=== PATIENT | male | born 2000 | race Two or more races ===

== ENCOUNTER 2025-08-24 17:31 | Emergency (ER) | payer MEDICAID, SELFPAY ==
[2025-08-24 18:06] VITALS: BP 131/79; PULSE 58; RESP 16; TEMP 36.3; O2SAT 98; BMI 29.9
--- NOTE | 2025-08-24 18:26 | XR_ITS ---
Examination: CT abdomen and pelvis without contrast. Coronal 3-D reconstructions. Sagittal 2-D reconstructions. Date and time of exam: August 24, 2025, 1835 hours INDICATIONS: Bilateral flank pain beginning 5 days ago CTDI: vol (mGy): 8.3 DLP: (mGycm): 476 Technique: Axial images of the abdomen have been obtained, 3 mm slice thickness Intravenous contrast material has not been administered. Low dose protocols were performed. One or more of the following dose reduction techniques were used; automated exposure control, adjustment of the mA and/or KV according to patient size, use of iterative reconstruction technique. Findings: 3 mm pulmonary nodule left lower lobe No focal liver or splenic lesion No gallstones No pancreatic or adrenal mass No hydronephrosis but 6 mm proximal right ureteral calculus, coronal image 73 Aorta normal size 10 mm fat-containing umbilical hernia Normal appendix No bowel obstruction Normal prostate Normal urinary bladder Intact osseous structures IMPRESSION: 3 mm pulmonary nodule left lower lobe, recommend PA chest follow-up No hydronephrosis but 6 mm proximal right ureteral calculus, coronal image 73
--- NOTE | 2025-08-24 18:26 | PD.EDRME ---
Rapid Medical Screening Exam E Arrival date/time: 08/24/25 17:31 24M with history of kidney stones presents to ED with several days of bilateral flank pain (R>L). Patient denies gross dysuria/hematuria. Patient works as a data processing consultant. Chief Complaint: Back Pain/Injury Vital signs: Vital Signs Temperature 97.4 F 08/24/25 18:06 Pulse Rate 58 L 08/24/25 18:06 Respiratory Rate 16 08/24/25 18:06 Blood Pressure 131/79 H 08/24/25 18:06 Pulse Oximetry (%) 98 08/24/25 18:06 Oxygen Delivery Method Room Air 08/24/25 18:06 Exam: No gross CVA tenderness. Clinical Impression: MSK back pain vs UTI/pyelo vs kidney stone vs DDD
[2025-08-24 18:59] LABS: Collection Type, Urine Clean Catch; Squamous Epithelial Cell,Urine 0 /hpf (0-5)
[2025-08-24 18:59] LABS: Basophils # (Auto) 0.0 Thou/mm3 (0.0-0.2); Basophils % (Auto) 0 % (0-2.5); Eosinophils # (Auto) 0.0 Thou/mm3 (0.0-0.5); Eosinophils % (Auto) 0 % (0-10); Hematocrit 45.5 % (41.0-53.0); Hemoglobin 16.5 g/dL (13.5-16.0); Immature Granulocytes Auto 0.07 Thou/mm3 (0.00-0.00); Lymphocytes # (Auto) 2.5 Thou/mm3 (1.0-4.8); Lymphocytes % (Auto) 15 % (10-50); Mean Corpuscular HGB Conc 36.3 g/dl (31.0-37.0); Mean Corpuscular Hemoglobin 30.3 pg (25.0-35.0); Mean Corpuscular Volume 84 fL (80-100); Monocytes # (Auto) 0.8 Thou/mm3 (0.0-0.8); Monocytes % (Auto) 5 % (0-12); Neutrophils # (Auto) 12.7 Thou/mm3 (1.8-7.7); Neutrophils % (Auto) 79 % (37-80); Nucleated Red Blood Cell # 0.00 Thou/mm3 (0.00-0.00); Nucleated Red Blood Cell % 0 /100 WBC (0); Platelet Count 331 Thou/mm3 (140-440); RDW Standard Deviation 36.5 fL (35.1-43.9); Red Blood Count 5.45 Miln/mm3 (4.50-5.90); White Blood Count 16.1 Thou/mm3 (3.8-10.6)
[2025-08-24 19:12] LABS: Bilirubin,Urine Negative (Negative); Blood,Urine 3+ (Negative); Clarity,Urine Clear (Clear/Hazy); Color,Urine Lt-Yellow (Lt Yel-Yel); Culture Indicated,Urine Not Indicated; Glucose, Urine Negative (Negative); Ketones,Urine Negative (Negative); Leukocyte Esterase,Urine Negative (Negative); Nitrite,Urine Negative (Negative); PH,Urine 8.0 (5.0-7.0); Protein,Urine Negative (Neg - Trace); RBC,Urine 368 /hpf (0-3); Specific Gravity,Urine 1.019 (1.001-1.035); Urobilinogen,Urine Negative mg/dL (0.0-1.0); WBC,Urine 1 /hpf (0-5)
[2025-08-24 19:19] LABS: Amphetamine/Methamp Scrn,U Negative (Negative); Barbiturate Screen,Urine Negative (Negative); Benzodiazepines Screen,Urine Negative (Negative); Benzoylecgonine Screen, Ur Negative (Negative); Fentanyl Screen,Urine Negative (Negative); Opiate Screen,Urine Negative (Negative); THC Screen,Urine Positive (Negative)
[2025-08-24 19:20] LABS: Alanine Aminotransferase 18 U/L (10-49); Albumin, Serum 5.2 gm/dL (3.5-5.0); Albumin/Globulin Ratio 1.4 (1.2-2.2); Alkaline Phosphatase 92 U/L (46-116); Anion Gap 9 (7-16); Aspartate Amino Transferase 25 U/L (0-34); BUN/Creatinine Ratio 7 Ratio (12-20); Bilirubin,Total 0.7 mg/dL (0.3-1.2); Blood Urea Nitrogen 7 mg/dL (9-23); Calcium 10.5 mg/dL (8.3-10.6); Calcium (Corrected) 10.5 mg/dL (8.5-10.1); Carbon Dioxide 27.4 mMol/L (20.0-31.0); Chloride 103 mMol/L (98-107); Creatinine (Component) 1.0 mg/dL (0.6-1.3); Estimated Creatinine Clearance 117.0 mL/min (>60); Globulin 3.6 gm/dL (2.3-3.5); Glucose 119 mg/dL (74-106); Osmolality,Calculated 276 (275-295); Potassium 4.7 mMol/L (3.4-5.1); Sodium 139 mMol/L (136-145); Total Protein 8.8 gm/dL (5.7-8.2); eGFR > 60 See Note
--- NOTE | 2025-08-24 20:36 | PD.EDBACK ---
ED Back Injury Pain RME/HPI General Chief Complaint: Back Pain/Injury Stated Complaint: DELMIS FLANK PAIN, 03/17 Time Seen by Provider: 08/24/25 19:27 Arrival date/time: 08/24/25 17:31 24-year-old male patient with no past medical history, came in for evaluation regarding right flank pain. This been ongoing for several days, getting worse today, sometimes also complaining of left flank pain. Currently pain is described as crampy, severity 7 out of 10. Denies any fever no vomiting no other complaints noted denies any hematuria or dysuria or frequency. No medication was taken prior to ER visit. RME / HPI RME / HPI Narrative: 08/24/25 17:31 24M with history of kidney stones presents to ED with several days of bilateral flank pain (R>L). Patient denies gross dysuria/hematuria. Patient works as a real estate rep. Exam: No gross CVA tenderness. Impression: MSK back pain vs UTI/pyelo vs kidney stone vs DDD Related Data Previous Rx's ?Medication ?Instructions ?Recorded ketorolac 10 mg tablet 10 mg PO TID PRN pain 5 days #20 08/24/25 tabs tamsulosin 0.4 mg capsule 0.4 mg PO QDAY #14 caps 08/24/25 Allergies Allergy/AdvReac Type Severity Reaction Status Date / Time No Known Allergies Allergy Verified 08/24/25 17:35 Review of Systems Review of Systems Narrative Review of Systems: Review of system reviewed and within normal limits except mentioned in HPI ED Exam Narrative Physical exam: VITAL SIGNS: Reviewed. GENERAL APPEARANCE: Alert and interactive, follows commands, no acute distress, HEAD AND FACE: Non-traumatic. ENT: PERRL, pink conjunctivitis, eyelid no trauma, Mucous membrane moist. NECK: Supple, nontender, no nuchal rigidity. CHEST: No tenderness, no crepitus, no paradoxical movement, no retractions. LUNGS: Clear, well ventilated, symmetric, no rales, no wheezing, no ronchi, no stridor, good breath sounds bilaterally. HEART: Regular rate, regular rhythm, no murmur, no gallops. ABDOMEN: Soft, positive bowel sounds, nondistended, no guarding, nontender, no rebound, no masses, right flank tenderness RECTAL: Deferred. GENITAL: Deferred. NEUROLOGICAL: Gross motor function intact sensory function intact, Appropriate for age. MUSCULOSKELETAL: low back nontender, full range of motion. EXTREMITIES: Nontender, full range of motion. SKIN: Color pink, dry, no rash, no lacerations, no abrasions, no contusions. LYMPHATICS: Deferred. Course Quality Measures none Orders Category Date Time Status CT abdomen pelvis wo con Stat Exams 08/24/25 18:26 Completed CBC Stat Lab 08/24/25 18:41 Completed CMP [Comprehensive Metabolic Panel] Stat Lab 08/24/25 18:41 Completed Drug Screen,Urine Stat Lab 08/24/25 18:45 Completed Urinalysis, C/S if Indicated Stat Lab 08/24/25 18:45 Completed Ketorolac Inj [Toradol Inj] Med 08/24/25 20:35 Discontinued 30 mg IVP X1 ONE Ringers Lactated 1000 ml [Lactated Ringers] 1,000 ml Med 08/24/25 20:35 Discontinued IV 999 mls/hr Ringers Lactated 1000 ml [Lactated Ringers] 1,000 ml Med 08/24/25 20:36 Discontinued IV 999 mls/hr Tamsulosin HCl [Flomax] Med 08/24/25 20:35 Discontinued 0.4 mg PO X1 ONE Vital Signs Vital signs: Vital Signs Temperature 97.4 F 08/24/25 18:06 Pulse Rate 58 L 08/24/25 18:06 Respiratory Rate 16 08/24/25 18:06 Blood Pressure 131/79 H 08/24/25 18:06 Pulse Oximetry (%) 98 08/24/25 18:06 Oxygen Delivery Method Room Air 08/24/25 18:06 Back Pain / Injury MDM Narrative MDM Narrative:: 08/24/25 17:31 24-year-old male patient with no past medical history, came in for evaluation regarding right flank pain. This been ongoing for several days, getting worse today, sometimes also complaining of left flank pain. Currently pain is described as crampy, severity 7 out of 10. Denies any fever no vomiting no other complaints noted denies any hematuria or dysuria or frequency. No medication was taken prior to ER visit. Patient's workup came back unremarkable except positive for hematuria no UTI. CT scan of the abdomen pelvis showed no hydronephrosis process however patient had 6 mm right ureteral stone. Patient received 2 L of IV fluids, Toradol, and Flomax. Patient verbalized complete resolution of pain. No vomiting no fever urinating a lot while in the emergency room. Patient data External records reviewed:: None Clinical information provided by:: patient and family Social determinants that could affect healthcare access:: none (none) Patient has the following chronic illnesses:: none How is presenting disease/condition affected by chronic disease/condition?: exacerbated by Evaluation data The following diagnostics were reviewed and interpreted by me:: lab results and radiology exam(s) Lab and/or radiology exams considered but not ordered:: none Interpretation Summary: see above Medications / Prescriptions Medications or Prescriptions considered but not ordered:: none Medication administrations:: Medication Administration History Discontinued Medications Lactated Ringer's (Lactated Ringers) 1,000 mls @ 999 mls/hr IV .Q1H1M ONE Stop: 08/24/25 21:35 Last Infusion: 08/24/25 22:08 Dose: Infused Documented By: Admin: 08/24/25 20:46 Dose: 999 mls/hr Documented By: EUNICE Lactated Ringer's (Lactated Ringers) 1,000 mls @ 999 mls/hr IV .Q1H1M ONE Stop: 08/24/25 21:36 Last Infusion: 08/24/25 22:09 Dose: Infused Documented By: Admin: 08/24/25 20:47 Dose: 999 mls/hr Documented By: EUNICE Ketorolac Tromethamine (Ketorolac Inj 30 Mg/Ml Vial) 30 mg IVP X1 ONE Stop: 08/24/25 20:36 Last Admin: 08/24/25 20:46 Dose: 30 mg Documented By: EUNICE Tamsulosin HCl (Tamsulosin Hcl 0.4 Mg Capsule) 0.4 mg PO X1 ONE Stop: 08/24/25 20:36 Last Admin: 08/24/25 21:21 Dose: 0.4 mg Documented By: RADHA IV fluids, Toradol Flomax Consultations Consultation(s) initiated? (list below): No Diagnosis Differential diagnosis back pain/injury: sciatica, renal colic and pyelonephritis Most likely diagnosis given after review of the tests above:: Ureterolithiasis Admission Indicated Admission indicated?: not indicated Admission Request Was there a request for admission?: No Disposition Plan Disposition Plan: Discharge Discharge Attestation Discharge Attestation: The patient and all family members were given an opportunity to ask questions and understood the discharge instructions. Discharge instructions specifically effects, indications for sooner follow up or return to the emergency department, and the expected course of current diagnosis. Patient condition: Stable Discharge Plan Plan Patient Disposition: HOME (Self Care) Discharge Disposition comment: Stable Prescriptions/Referrals Prescriptions/Med Rec: New ketorolac 10 mg tablet 10 mg PO TID PRN (Reason: pain) 5 Days Qty: 20 0RF tamsulosin 0.4 mg capsule 0.4 mg PO QDAY Qty: 14 0RF Referrals: No Primary/Family,Physician [Primary Care Provider] - In 1 week Problem List Clinical Impression: Ureterolithiasis Patient/Caregiver Discharge Instructions Discharge Activity: activity as tolerated Education Materials: Kidney Stones Expectant Tx Additional Instructions: Thank you for the opportunity for serving you today. You are stable for discharged . You are advised to: Follow-up with your PCP in 1 to 2 days Return to ED for worsening of symptoms, worsening pain, fever, vomiting Increase oral fluids Take medication as prescribed As your PCP to refer you to a urologist Strain your urine and collect the stone for your urologist visit Print Language: Polish Stand Alone Forms: Kalyani Award Info., Patient Portal Info Letter PA/LAYOUT ARTIST Supervising Physician LIZETT/BOLA Supervising Physician: MD Adrianna
[2025-08-24 20:41] VITALS: BP 137/85; PULSE 65; RESP 16; O2SAT 100
[2025-08-24] MEDS: KETOROLAC INJ 30 MG/ML VIAL IVP (20:46)
[2025-08-24] MEDS: RINGERS LACTATED 1000 ML 1,000 ML 999 ML IV ×2 (20:46→20:47)
[2025-08-24] MEDS: TAMSULOSIN HCL 0.4 MG CAPSULE PO (21:21)
[2025-08-24 22:17] VITALS: BP 129/88; PULSE 94; RESP 19; TEMP 36.8; O2SAT 95
== END 2025-08-24 22:39 | disposition home or self-care (01) ==
PROVIDERS: Physician Assistant; Emergency Provider Emergency Medicine
DX: N20.1 Calculus of ureter (principal)
CPT/HCPCS: 36415; 74176; 80053; 80307; 81001; 85025; 96361; 96374; 99284; J1885; J7120; A9270